=== PATIENT | female | born 1960 | race Caucasian/White ===

== ENCOUNTER 2020-06-21 08:08 | Outpatient (REF) | payer MEDICARE, SELFPAY ==
[2020-06-21 12:02] LABS: Alanine Aminotransferase 41 U/L (0-31); Albumin Level 4.5 g/dL (3.5-5.0); Alkaline Phosphatase 66 U/L (39-117); Anion Gap 13 (12-20); Aspartate Amino Transferase 33 U/L (5-31); Bilirubin Direct 0.2 mg/dL (0.0-0.5); Bilirubin Total 0.5 mg/dL (0.0-1.0); Blood Urea Nitrogen 18 mg/dL (9-16); Calcium 9.2 mg/dL (8.4-10.2); Carbon Dioxide 27 mmol/L (22-29); Chloride 106 mmol/L (96-108); Cholesterol 153 mg/dL; Estimated Glomerular Filt Rate > 60; Glucose Fasting 87 mg/dL (60-99); HDL Cholesterol 51 mg/dL; Potassium 4.1 mmol/l (3.3-5.1); Sodium 142 mmol/L (135-145); Total Protein 6.9 g/dL (6.5-8.0)
[2020-06-21 12:08] LABS: LDL Cholesterol Calculated 60 mg/dl; Triglycerides 214 mg/dL
== END 2020-06-21 08:09 | disposition home or self-care (01) ==
LOC: HO.WFDLDS 08:08
PROVIDERS: PCP Nurse Practitioner Family; Visit Provider Internal Medicine Cardiovascular Disease
DX: Z13.220 Encounter for screening for lipoid disorders (principal); Z13.89 Encounter for screening for other disorder
CPT/HCPCS: 80048; 80061; 80076

== ENCOUNTER → 2020-08-01 09:00 | Outpatient (BNVA) | payer MEDICARE, SELFPAY | PROVIDERS: PCP Nurse Practitioner Family; Visit Provider Urology | DX: N30.10 Interstitial cystitis (chronic) without hematuria (principal); R39.15 Urgency of urination | CPT/HCPCS: Q3014 ==

== ENCOUNTER 2020-08-16 07:16 | Outpatient (REF) | payer MEDICARE, SELFPAY ==
[2020-08-16 10:52] LABS: MANUAL DIFF FLAG NO
[2020-08-16 10:59] LABS: Basophils Percent Auto 0.8 % (0-2); Eosinophils Absolute Auto 0.2 X10*3/uL (0.0-0.4); Hematocrit 40.2 % (37-47); Hemoglobin 13.3 g/dl (12.0-16.0); Imm Gran Abs Auto 0.01 X10*3/uL (0.00-0.03); Imm Gran Pct Auto 0.2 % (0.0-0.4); Lymphocytes Absolute Auto 2.1 X10*3/uL (1.2-4.9); Lymphocytes Percent Auto 39.1 % (20-40); Mean Corpuscular HGB Conc 33.1 g/dl (31.0-35.0); Mean Corpuscular Volume 87.8 fL (80-98); Mean Platelet Volume 10.9 fL (9.4-12.3); Monocytes Absolute Auto 0.4 X10*3/uL (0.1-1.2); Monocytes Percent Auto 6.8 % (2-11); Neutrophils Absolute Auto 2.7 X10*3/uL (2.0-8.3); Neutrophils Percent Auto 50.1 % (45-73); Platelet Count 264 X10*3/uL (160-400); Red Blood Count 4.58 X10*6/uL (4.20-5.50); Red Cell Distribution Width 12.8 % (11.0-16.0); White Blood Count 5.3 X10*3/uL (4.8-10.8)
[2020-08-16 11:40] LABS: Alanine Aminotransferase 21 U/L (0-31); Albumin Level 4.3 g/dL (3.5-5.0); Alkaline Phosphatase 61 U/L (39-117); Anion Gap 13 (12-20); Aspartate Amino Transferase 21 U/L (5-31); Bilirubin Total 0.9 mg/dL (0.0-1.0); Blood Urea Nitrogen 15 mg/dL (9-16); Carbon Dioxide 28 mmol/L (22-29); Chloride 105 mmol/L (96-108); Cholesterol 155 mg/dL; Estimated Glomerular Filt Rate > 60; Glucose Random 85 mg/dL (60-115); HDL Cholesterol 56 mg/dL; LDL Cholesterol Calculated 63 mg/dl; Potassium 4.6 mmol/L (3.3-5.1); Sodium 141 mmol/L (135-145); Total Protein 6.5 g/dL (6.5-8.0); Triglycerides 180 mg/dL
[2020-08-16 12:08] LABS: Thyroid Stimulating Hormone 2.22 uIU/mL (0.32-4.0)
== END 2020-08-16 07:17 | disposition home or self-care (01) ==
LOC: HO.WFDLDS 07:16
PROVIDERS: PCP Nurse Practitioner Family; Visit Provider Nurse Practitioner Family
DX: E78.00 Pure hypercholesterolemia, unspecified (principal); E03.9 Hypothyroidism, unspecified
CPT/HCPCS: 36415; 80053; 80061; 84443; 85025

== ENCOUNTER → 2020-08-22 13:50 | Outpatient (BNVA) | payer MEDICARE, SELFPAY | PROVIDERS: PCP Nurse Practitioner Family; Visit Provider Urology | DX: N30.10 Interstitial cystitis (chronic) without hematuria (principal) | CPT/HCPCS: 51700 ==

== ENCOUNTER → 2020-08-23 13:54 | Outpatient (BNVA) | payer MEDICARE, SELFPAY | PROVIDERS: PCP Nurse Practitioner Family; Visit Provider Urology | DX: N30.10 Interstitial cystitis (chronic) without hematuria (principal) | CPT/HCPCS: 51700 ==

== ENCOUNTER → 2020-08-24 09:24 | Outpatient (BNVA) | payer MEDICARE, SELFPAY | PROVIDERS: Visit Provider Urology | DX: N30.10 Interstitial cystitis (chronic) without hematuria (principal) | CPT/HCPCS: 51700 ==

== ENCOUNTER → 2020-08-25 08:54 | Outpatient (BNVA) | payer MEDICARE, SELFPAY | PROVIDERS: Visit Provider Urology | DX: N30.10 Interstitial cystitis (chronic) without hematuria (principal) | CPT/HCPCS: 51700 ==

== ENCOUNTER → 2020-08-29 08:50 | Outpatient (BNVA) | payer MEDICARE, SELFPAY | PROVIDERS: Visit Provider Urology | DX: N30.10 Interstitial cystitis (chronic) without hematuria (principal) | CPT/HCPCS: 51700; 81002; 99212 ==

== ENCOUNTER → 2020-09-05 08:55 | Outpatient (BNVA) | payer MEDICARE, SELFPAY | PROVIDERS: Visit Provider Urology | DX: N30.10 Interstitial cystitis (chronic) without hematuria (principal) | CPT/HCPCS: 51700 ==

== ENCOUNTER 2023-04-02 07:03 | Outpatient (REF) | payer MEDICARE, SELFPAY ==
[2023-04-02 11:32] LABS: Hematocrit 38.3 % (37.0-47.0); Hemoglobin 12.6 g/dl (12.0-16.0); Mean Corpuscular HGB Conc 32.9 g/dl (31.0-35.0); Mean Corpuscular Hemoglobin 29.5 pg (27.0-33.0); Mean Corpuscular Volume 89.7 fL (80.0-98.0); Mean Platelet Volume 10.5 fL (9.4-12.3); Platelet Count 240 X10*3/uL (160-400); Red Blood Count 4.27 X10*6/uL (4.20-5.50); Red Cell Distribution Width 13.2 % (11.0-16.0); White Blood Count 4.8 X10*3/uL (4.8-10.8)
[2023-04-02 11:53] LABS: Alanine Aminotransferase 18 U/L (0-31); Albumin Level 3.9 g/dL (3.5-5.0); Alkaline Phosphatase 46 U/L (39-117); Anion Gap 9 (12-20); Aspartate Amino Transferase 20 U/L (5-31); Bilirubin Total 0.7 mg/dL (0.0-1.0); Blood Urea Nitrogen 15 mg/dL (9-16); Calcium 8.5 mg/dL (8.4-10.2); Carbon Dioxide 27 mmol/L (22-29); Chloride 110 mmol/L (96-108); Estimated Glomerular Filt Rate > 60; Glucose Fasting 90 mg/dL (60-99); Potassium 4.4 mmol/L (3.3-5.1); Sodium 142 mmol/L (135-145); Total Protein 5.8 g/dL (6.5-8.0)
== END 2023-04-02 07:04 | disposition home or self-care (01) ==
LOC: HO.WFDLDS 07:03
PROVIDERS: Visit Provider Nurse Practitioner Family
DX: I25.10 Atherosclerotic heart disease of native coronary artery without angina pectoris (principal); E03.9 Hypothyroidism, unspecified; E78.00 Pure hypercholesterolemia, unspecified
CPT/HCPCS: 36415; 80053; 85027

== ENCOUNTER 2023-10-21 08:32 | Outpatient (AMB) | payer MEDICARE, SELFPAY ==
--- NOTE | 2023-10-21 08:40 | MHC.OFFVIS ---
Intake Visit Reasons: Interstitial Cystitis Intake Note: New Patient is Present for IC. Patient was last seen in 2020 patient had moved to [place] U[facility] Medication: Oxybutynin Antibiotic Allergies: Ceftin Blood Thinners: Aspirin, PVR: 0 Patient states she recently had a UTI 2 weeks ago was treated with Cipro Currently patient has no symptoms Allergies cefuroxime [Ceftin] Allergy (Unknown, Verified 10/21/23 08:43) Unknown ceftin Allergy (Unknown, Uncoded 10/21/23 08:43) rash From Ceftin Allergy (Unknown, Uncoded 10/21/23 08:43) RASH, SOB Medication List - Last Reconciled 10/21/23 by Shree Galeas MD alirocumab 75 mg subcut Q2W amitriptyline 20 mg (2 x 10 mg) PO BEDTIME 30 days aspirin (Adult Low Dose Aspirin) 81 mg PO DAILY bupivacaine HCl 50 mg (10 mL) intravesical .Weekly PRN 30 days clopidogrel (Plavix) 75 mg PO DAILY diltiazem HCl CD (Cardizem CD) 180 mg PO DAILY gabapentin 300 mg PO BEDTIME 30 days levofloxacin 500 mg PO DAILY 5 days levothyroxine 50 mcg PO DAILY lidocaine HCl 10 mL intravesical .Weekly 4 weeks lidocaine HCl 2% 1 appl intra-urethral .Weekly PRN 30 days oxybutynin chloride ER 10 mg PO DAILY 30 days rosuvastatin (Crestor) 20 mg PO DAILY HPI Comments Details: Bobbi GARCIA is a very pleasant female. They are a patient of Dr Shahid. They are seen in the office today for the following urologic conditions. - interstitial cystitis - current UTI Has not been seen for 3 years Has moved back from [place] Had UTI number of months ago Has had intermittent symptoms every 4-6 weeks Positive UA today All trial Levaquin, has allergy to ciprofloxacin Prior Good response to rescue therapies Medications included oxybutynin, add amitriptyline, gabapentin, Naprosyn UA today 1+ nitrite, spec grav 1.015 Urinary Tract Infection: - flare IC Interstitial cystitis flare resolving Discussed trial of overactive bladder medication. Has been off oxybutynin. Will retry She will provide sample if recurrence. 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 Symptoms have included dyuria No urgency Yes frequency Yes PFSH Medical History Heart disease Sensation of pressure in bladder area Interstitial cystitis Urinary urgency Coronary artery disease Surgical History History of angioplasty History of hysterectomy Family History Father Lung cancer Mother Cerebral hemorrhage Sister Myocardial infarction Review of Systems Const Denies chills and Denies fever(s) Card Reports no additional complaints and Denies syncope Resp Denies cough GI Denies abdominal pain and Denies heartburn Reports as per HPI and Denies change in libido Neuro Denies syncope Psych Denies change in libido Endo Denies change in libido Physical Exam Const General: cooperative, healthy appearing, comfortable and no acute distress Orientation/consciousness: patient oriented x3 HEENT Face and sinus: Yes normal facial exam Mouth: moist mucous membranes Neck Neck: Yes normal visual inspection, Yes full ROM and Yes trachea midline Chest Chest palpation & inspection: normal inspection of the chest Resp Effort & Inspection: normal respiratory effort, able to speak in complete sentences and no respiratory distress GI Inspection: Yes normal to inspection Back/Spine/Pelvis Cervical Spine: normal cervical lordosis Thoracic/Lumbar Spine: thoracic and lumbar spine normal to inspection Skin General skin exam: no rashes or lesions noted Neuro General: patient oriented x3, gait normal, tone normal and moves all extremities Extrem General: Yes normal to inspection and Yes capillary refill normal Office Procedures Post Void Residual Post Residual Void Post Void Residual (PVR): 0 68147-Ajff Void Residual by ultrasound Results AMB Urinalysis, Automated UA Leukoctes 0 Viviana/uL Last Edit by ROBERTO Cole on 10/21/23 08:52 UA Nitrite Positive Last Edit by ROBERTO Cole on 10/21/23 08:52 UA Urobilinogen 0.2 mg/dL Last Edit by ROBERTO Cole on 10/21/23 08:52 UA Protein 0 mg/dL Last Edit by ROBERTO Cole on 10/21/23 08:52 UA pH 5.5 Last Edit by ROBERTO Cole on 10/21/23 08:52 UA Blood 0 James/uL Last Edit by ROBERTO Cole on 10/21/23 08:52 UA Specific [place] 1.015 Last Edit by JANIE ColeA on 10/21/23 08:52 UA Ketone Negative Last Edit by JANIE ColeA on 10/21/23 08:52 UA Bilirubin 0 mg/dL Last Edit by JANIE ColeA on 10/21/23 08:52 UA Glucose 0 mg/dL Last Edit by ROBERTO Cole on 10/21/23 08:52 Results Reviewed Results Reviewed: Laboratory Last Values Urine pH (Auto) 5.5 10/21/23 08:45 Specific [place] (Auto) 1.015 10/21/23 08:45 Urine Protein (Auto) 0 mg/dL 10/21/23 08:45 Glucose (UA)(Auto) 0 mg/dL 10/21/23 08:45 Urine Ketones (Auto) Negative 10/21/23 08:45 Urine Blood (Auto) 0 James/uL 10/21/23 08:45 Urine Nitrite (Auto) Positive 10/21/23 08:45 Urine Bilirubin (Auto) 0 mg/dL 10/21/23 08:45 Urine Urobilinogen (Auto) 0.2 mg/dL 10/21/23 08:45 Leukocyte Esterase (Auto) 0 Viviana/uL 10/21/23 08:45 Assessment & Plan Assessment & Plan (1) Chronic UTI (urinary tract infection): Code(s): N39.0 - Urinary tract infection, site not specified Category: Medical (2) Interstitial cystitis: Code(s): N30.10 - Interstitial cystitis (chronic) without hematuria Category: Medical Plan Trial Levaquin Orders: Orders AMB Urinalysis Automated Today Z13.9 - Encounter for screening, unspecified AMB Post Void Residual by ultrasound Today R39.15 - Urgency of urination Urine Culture Today N39.0 - Urinary tract infection, site not specified Medications: New levofloxacin 500 mg PO DAILY 5 days 5 tabs 0RF N39.0 - Urinary tract infection, site not specified Patient Instructions: Imaging studies, laboratory and physical exam results were discussed and reviewed in detail. No major barriers to patient understanding were identified. An opportunity to ask questions regarding the treatment plan was provided. All questions were answered. The patient expressed understanding and agreement with the above treatment plan. The patient is aware they should contact our office by phone for worsening of their current condition or the appearance of new urologic symptoms. Compliance is encouraged with any medications and followup testing that is ordered. It is a privilege to participate in the urologic care of your patient. If you have any questions or concerns regarding treatment for the above conditions, or other urologic issues, please do not hesitate to contact me. The office telephone contact is [phone]. This note is constructed using voice recognition software. While every effort has been made to ensure accuracy project manager industrial errors may have been included. Yours sincerely, Dr Shree Galeas MD, [facility] - Urology Providers of Expert, Compassionate Care for the Genitourinary System
== END 2023-10-21 09:09 | disposition home or self-care (01) ==
PROVIDERS: Visit Provider Urology
DX: N39.0 Urinary tract infection, site not specified (principal); N30.10 Interstitial cystitis (chronic) without hematuria; Z13.9 Encounter for screening, unspecified
CPT/HCPCS: 99204

== ENCOUNTER 2023-10-21 08:32 | Outpatient (REF) | payer MEDICARE, SELFPAY | END 2023-10-21 08:33 | disposition home or self-care (01) | LOC: HO.LAB 08:32 | PROVIDERS: Visit Provider Urology | DX: N30.10 Interstitial cystitis (chronic) without hematuria (principal); Z13.9 Encounter for screening, unspecified | CPT/HCPCS: 51798; 81003; 87086; 99202 ==

== ENCOUNTER 2023-11-18 08:38 | Outpatient (AMB) | payer MEDICARE, SELFPAY ==
--- NOTE | 2023-11-18 08:39 | A.OFFVIS_ITS ---
Intake Visit Reasons: 1m follow up Intake Note: Patient is Present for Telephone Follow Up Urology Med: Oxybutynin, Gabapentin Antibiotic Allergy:Ceftin Blood Thinner: Aspirin Patient just finished Levofloxacin Allergies cefuroxime [Ceftin] Allergy (Unknown, Verified 11/18/23 08:41) Unknown ceftin Allergy (Unknown, Uncoded 11/18/23 08:41) rash From Ceftin Allergy (Unknown, Uncoded 11/18/23 08:41) RASH, SOB Medication List - Last Reconciled 11/18/23 by Shree Galeas MD alirocumab 75 mg subcut Q2W amitriptyline 20 mg (2 x 10 mg) PO BEDTIME 30 days aspirin (Adult Low Dose Aspirin) 81 mg PO DAILY bupivacaine HCl 50 mg (10 mL) intravesical .Weekly PRN 30 days diltiazem HCl CD (Cardizem CD) 180 mg PO DAILY estradiol 0.01%(0.1mg/gram) pea-sized to urethra 3 times a week 30 days gabapentin 300 mg PO BEDTIME 30 days levothyroxine 50 mcg PO DAILY lidocaine HCl 10 mL intravesical .Weekly 4 weeks lidocaine HCl 2% 1 appl intra-urethral .Weekly PRN 30 days oxybutynin chloride ER 10 mg PO DAILY 30 days rosuvastatin (Crestor) 20 mg PO DAILY HPI Comments Details: Bobbi GARCIA is a very pleasant female. They are a patient of Dr Shahid. They are seen in the office today for the following urologic conditions. - interstitial cystitis - current UTI Telemedicine Evaluation 15 min Consultation D[employer] [place]is [place] Video Trial 3 times per week esterase f/u 6m nurse practioner Interstitial cystitis Prior Good response to rescue therapies Medications included oxybutynin, add amitriptyline, gabapentin, Naprosyn Urinary Tract Infection: - flare IC Interstitial cystitis flare resolving Discussed trial of overactive bladder medication. Has been off oxybutynin. Will retry She will provide sample if recurrence. 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 - Micro 10/21 mixed jillian Symptoms have included dyuria No urgency Yes frequency Yes PFSH Medical History Heart disease Sensation of pressure in bladder area Interstitial cystitis Urinary urgency Coronary artery disease Surgical History History of angioplasty History of hysterectomy Family History Father Lung cancer Mother Cerebral hemorrhage Sister Myocardial infarction Review of Systems Const All systems reviewed & are unremarkable except as noted in HPI and below Reports no additional complaints Resp Reports no additional complaints GI Reports no additional complaints Reports as per HPI Musc Reports no additional complaints Physical Exam Telemedicine evaluation Appropriate responses Regular breathing rate and rhythm HEENT Head: Yes normal to inspection Ears: hearing grossly normal bilaterally Eyes General: appearance normal, both eyes and all related structures Neck Neck: Yes normal visual inspection Chest Chest palpation & inspection: normal inspection of the chest Resp Effort & Inspection: normal respiratory effort and able to speak in complete sentences Telehealth Telehealth Telehealth Platform: [employer] Location of provider rendering services: practice address Location of patient: address on file Patient Identification confirmed using: Name, : Yes Telehealth method: video Patient verbally consented to treatment: Yes Patient verbally consented to billing insurance company: Yes Patient informed of any privacy concerns related to visit: Yes Minutes spent on Phone/Video with Pt.: 15 Assessment & Plan Assessment & Plan (1) Interstitial cystitis: Code(s): N30.10 - Interstitial cystitis (chronic) without hematuria Category: Medical (2) Chronic UTI (urinary tract infection): Code(s): N39.0 - Urinary tract infection, site not specified Category: Medical Plan Six-month follow-up office Medications: New estradiol 0.01%(0.1mg/gram) pea-sized to urethra 3 times a week 30 days 42.5 grams 2RF N39.0 - Urinary tract infection, site not specified Patient Instructions: Imaging studies, laboratory and physical exam results were discussed and reviewed in detail. No major barriers to patient understanding were identified. An opportunity to ask questions regarding the treatment plan was provided. All questions were answered. The patient expressed understanding and agreement with the above treatment plan. The patient is aware they should contact our office by phone for worsening of their current condition or the appearance of new urologic symptoms. Compliance is encouraged with any medications and followup testing that is ordered. It is a privilege to participate in the urologic care of your patient. If you have any questions or concerns regarding treatment for the above conditions, or other urologic issues, please do not hesitate to contact me. The office telephone contact is [phone]. This note is constructed using voice recognition software. While every effort has been made to ensure accuracy guest relations agent errors may have been included. Yours sincerely, Dr Shree Galeas MD, [facility] - Urology Providers of Expert, Compassionate Care for the Genitourinary System Coding Level of Care Code Tele Est Pt Level 4 (68993) Diagnoses Interstitial cystitis N30.10 Chronic UTI (urinary tract infection) N39.0
== END 2023-11-18 09:11 | disposition home or self-care (01) ==
LOC: HO.HUSH 08:38
PROVIDERS: Visit Provider Urology
DX: N39.0 Urinary tract infection, site not specified (principal)
CPT/HCPCS: 99213

== ENCOUNTER → 2023-11-18 08:38 | Outpatient (BNVA) | payer MEDICARE, SELFPAY | PROVIDERS: Visit Provider Urology ==

== ENCOUNTER 2024-06-09 09:46 | Outpatient (AMB) | payer MEDICARE, SELFPAY ==
--- NOTE | 2024-06-09 10:04 | A.OFFVIS_ITS ---
Intake Visit Reasons: 6 month f/u Intake Note: Patient is present for IC/UTI Follow up Urology Med: Estradiol Antibiotic Allergy: None Blood Thinner: Aspirin Last PVR:0ML Todays PVR: 0ml Patient states that she has been very symptomatic reports pain with urination, She also reports burning, Pressure and Frequency. She was recently treated with Ceftin 500mg for 5 days states that it did not help at all. Berry Picker Machine Operator Required: No Accompanied by: Self / Same As Patient Allergies cefuroxime [Ceftin] Allergy (Unknown, Verified 06/09/24 10:10) Unknown ceftin Allergy (Unknown, Uncoded 06/09/24 10:10) rash From Ceftin Allergy (Unknown, Uncoded 06/09/24 10:10) RASH, SOB HPI Comments Details: Bobbi GARCIA is a very pleasant female. They are a patient of Dr Shahid. They are seen in the office today for the following urologic conditions. - interstitial cystitis - recurrent UTI IC flare following UTI UA negative today Rescue solution today - she will call if effective and then have 5 treatments sequentially followed by 1 treatment weekly for 5 weeks We prescribed amitriptyline, gabapentin, Naprosyn which she has responded to well previously Interstitial cystitis Prior Good response to rescue therapies Medications included oxybutynin, Response to combination therapy with flare Urinary Tract Infection: - flare IC Interstitial cystitis flare resolving Discussed trial of overactive bladder medication. Has been off oxybutynin. Will retry She will provide sample if recurrence. 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 - Micro 10/21 mixed jillian Symptoms have included dyuria No urgency Yes frequency Yes PFSH Medical History Heart disease Sensation of pressure in bladder area Interstitial cystitis Urinary urgency Coronary artery disease Surgical History History of angioplasty History of hysterectomy Family History Father Lung cancer Mother Cerebral hemorrhage Sister Myocardial infarction Review of Systems Const Denies chills and Denies fever(s) Card Reports no additional complaints and Denies syncope Resp Denies cough GI Denies abdominal pain and Denies heartburn Reports as per HPI and Denies change in libido Neuro Denies syncope Psych Denies change in libido Endo Denies change in libido Physical Exam Const General: cooperative, healthy appearing, comfortable and no acute distress Orientation/consciousness: patient oriented x3 HEENT Face and sinus: Yes normal facial exam Mouth: moist mucous membranes Neck Neck: Yes normal visual inspection, Yes full ROM and Yes trachea midline Chest Chest palpation & inspection: normal inspection of the chest Resp Effort & Inspection: normal respiratory effort, able to speak in complete sentences and no respiratory distress GI Inspection: Yes normal to inspection Back/Spine/Pelvis Cervical Spine: normal cervical lordosis Thoracic/Lumbar Spine: thoracic and lumbar spine normal to inspection Skin General skin exam: no rashes or lesions noted Neuro General: patient oriented x3, gait normal, tone normal and moves all extremities Extrem General: Yes normal to inspection and Yes capillary refill normal Office Procedures Bladder/Catheter Procedure Details: Patient given IC instillation cocktail through 14fr straight catheter. Patient tolerated instillation well. Patient will call office later in day if helpful. 14fr straight catheter used to instill: 10mls Bupivicaine 0.50% 2mls Heparin (10,000 units) 10mls Lidocaine 2% 1 Lidocaine urojet 1ml Solumedrol 16860-Jcbnytuqyk of Bladder 22560-Btdccu Bladder Catheter Procedure code (CPT) selection complete Post Void Residual Post Residual Void Post Void Residual (PVR): 0 35049-Bzyw Void Residual by ultrasound Results AMB Urinalysis, Automated UA Leukoctes 15 Viviana/uL Last Edit by ROBERTO Cole on 06/09/24 10:25 UA Nitrite Negative Last Edit by ROBERTO Cole on 06/09/24 10:25 UA Urobilinogen 0.2 mg/dL Last Edit by ROBERTO Cole on 06/09/24 10:2 5 UA Protein 0 mg/dL Last Edit by ROBERTO Cole on 06/09/24 10:25 UA pH 6.0 Last Edit by ROBERTO Cole on 06/09/24 10:25 UA Blood 0 James/uL Last Edit by ROBERTO Cole on 06/09/24 10:25 UA Specific [place] 1.020 Last Edit by ROBERTO Cole on 06/09/24 10: 25 UA Ketone Negative Last Edit by Génesis Moulton, RMA on 06/09/24 10:25 UA Bilirubin 0 mg/dL Last Edit by Génesis Moulton, RMA on 06/09/24 10:25 UA Glucose 0 mg/dL Last Edit by Génesis Moulton, RMA on 06/09/24 10:25 Results Reviewed Results Reviewed: Laboratory Last Values Urine pH (Auto) 6.0 06/09/24 10:10 Specific [place] (Auto) 1.020 06/09/24 10:10 Urine Protein (Auto) 0 mg/dL 06/09/24 10:10 Glucose (UA)(Auto) 0 mg/dL 06/09/24 10:10 Urine Ketones (Auto) Negative 06/09/24 10:10 Urine Blood (Auto) 0 James/uL 06/09/24 10:10 Urine Nitrite (Auto) Negative 06/09/24 10:10 Urine Bilirubin (Auto) 0 mg/dL 06/09/24 10:10 Urine Urobilinogen (Auto) 0.2 mg/dL 06/09/24 10:10 Leukocyte Esterase (Auto) 15 Viviana/uL 06/09/24 10:10 Assessment & Plan Assessment & Plan (1) Interstitial cystitis: Code(s): N30.10 - Interstitial cystitis (chronic) without hematuria Category: Medical (2) Urinary urgency: Code(s): R39.15 - Urgency of urination Category: Medical Plan Rescue solutions Orders: Orders AMB Urinalysis Automated Today Z13.9 - Encounter for screening, unspecified AMB Post Void Residual by ultrasound Today N39.0 - Urinary tract infection, site not specified AMB Bladder/Catheter Procedure Today N30.10 - Interstitial cystitis (chronic) without hematuria, R39.15 - Urgency of urination Medications: New naproxen (Naprosyn) 500 mg PO BEDTIME 30 tabs 0RF pain 30 days N20.0 - Calculus of kidney, N30.10 - Interstitial cystitis (chronic) without hematuria Patient Instructions: Imaging studies, laboratory and physical exam results were discussed and reviewed in detail. No major barriers to patient understanding were identified. An opportunity to ask questions regarding the treatment plan was provided. All questions were answered. The patient expressed understanding and agreement with the above treatment plan. The patient is aware they should contact our office by phone for worsening of their current condition or the appearance of new urologic symptoms. Compliance is encouraged with any medications and followup testing that is ordered. It is a privilege to participate in the urologic care of your patient. If you have any questions or concerns regarding treatment for the above conditions, or other urologic issues, please do not hesitate to contact me. The office telephone contact is [phone]. This note is constructed using voice recognition software. While every effort has been made to ensure accuracy toxicologist errors may have been included. Yours sincerely, Dr Shree Galeas MD, [facility] - Urology Providers of Expert, Compassionate Care for the Genitourinary System Coding Level of Care Code Est Pt Level 4 (68673) Diagnoses Interstitial cystitis N30.10 Urinary urgency R39.15 CPT Codes Bladder/Catheter Procedure - CPT: 84408-Aeohpllzvj of Bladder ([id number]) Bladder/Catheter Procedure - CPT: 71781-Iduyuw Bladder Catheter ([id number]) Post Residual Void - PVR CPT Code: 06778-Mptm Void Residual by ultrasound ([id number])
== END 2024-06-09 10:44 | disposition home or self-care (01) ==
PROVIDERS: Visit Provider Urology
DX: N30.10 Interstitial cystitis (chronic) without hematuria (principal); R39.15 Urgency of urination; Z13.9 Encounter for screening, unspecified
CPT/HCPCS: 51700; 99214

== ENCOUNTER → 2024-06-09 09:46 | Outpatient (BNVA) | payer MEDICARE, SELFPAY | PROVIDERS: Visit Provider Urology | DX: N30.10 Interstitial cystitis (chronic) without hematuria (principal); R39.15 Urgency of urination | CPT/HCPCS: 51700; 51798; 81003; 99212 ==

== ENCOUNTER → 2024-06-10 08:18 | Outpatient (BNVA) | payer MEDICARE, SELFPAY | PROVIDERS: Visit Provider Urology | DX: N30.10 Interstitial cystitis (chronic) without hematuria (principal) | CPT/HCPCS: 51700; 51701 ==

== ENCOUNTER → 2024-06-11 08:21 | Outpatient (BNVA) | payer MEDICARE, SELFPAY | PROVIDERS: Visit Provider Urology | DX: N30.10 Interstitial cystitis (chronic) without hematuria (principal); R39.15 Urgency of urination | CPT/HCPCS: 51700; 51701 ==

== ENCOUNTER → 2024-06-14 08:21 | Outpatient (BNVA) | payer MEDICARE, SELFPAY | PROVIDERS: Visit Provider Urology | DX: N30.10 Interstitial cystitis (chronic) without hematuria (principal); R39.15 Urgency of urination | CPT/HCPCS: 51700; 51701 ==

== ENCOUNTER → 2024-06-15 09:54 | Outpatient (BNVA) | payer MEDICARE, SELFPAY | PROVIDERS: Visit Provider Urology | DX: N30.10 Interstitial cystitis (chronic) without hematuria (principal) | CPT/HCPCS: 51700; 51701 ==

== ENCOUNTER → 2024-06-25 08:24 | Outpatient (BNVA) | payer MEDICARE, SELFPAY | PROVIDERS: Visit Provider Urology | DX: N30.10 Interstitial cystitis (chronic) without hematuria (principal); Z46.6 Encounter for fitting and adjustment of urinary device | CPT/HCPCS: 51700; 51701 ==

== ENCOUNTER → 2024-07-02 07:56 | Outpatient (BNVA) | payer MEDICARE, SELFPAY | PROVIDERS: Visit Provider Urology | DX: N30.10 Interstitial cystitis (chronic) without hematuria (principal); R39.15 Urgency of urination | CPT/HCPCS: 51700; 51701 ==

== ENCOUNTER → 2024-07-09 08:00 | Outpatient (BNVA) | payer MEDICARE, SELFPAY | PROVIDERS: Visit Provider Urology | DX: N30.10 Interstitial cystitis (chronic) without hematuria (principal) | CPT/HCPCS: 51700; 51701 ==

== ENCOUNTER → 2024-07-15 07:55 | Outpatient (BNVA) | payer MEDICARE, SELFPAY | PROVIDERS: Visit Provider Urology | DX: N30.10 Interstitial cystitis (chronic) without hematuria (principal); R39.15 Urgency of urination | CPT/HCPCS: 51700; 51702 ==

== ENCOUNTER → 2024-07-23 07:54 | Outpatient (BNVA) | payer MEDICARE, SELFPAY | PROVIDERS: Visit Provider Urology | DX: N30.10 Interstitial cystitis (chronic) without hematuria (principal); R39.15 Urgency of urination | CPT/HCPCS: 51700; 51701 ==

== ENCOUNTER → 2024-08-04 08:23 | Outpatient (BNVA) | payer MEDICARE, SELFPAY | PROVIDERS: Visit Provider Urology | DX: R39.15 Urgency of urination (principal); N30.10 Interstitial cystitis (chronic) without hematuria | CPT/HCPCS: 81003; 99212 ==

== ENCOUNTER 2025-02-03 08:28 | Outpatient (AMB) | payer MEDICARE, SELFPAY ==
--- NOTE | 2025-02-03 08:40 | MHC.OFFVIS ---
Intake Visit Reasons: 6m follow up Intake Note: Patient is present for 6mo follow up C/O DYSURIA, FLANK PAIN, URINE ODOR Urology Medication:ESTRADIOL, AMITRIPTYLINE, OXYBUTIN, TOLTERODINE Antibiotic Allergy:CEFTIN Blood Thinner:ASPIRIN PVR 73MLS Market Maker Required: No Accompanied by: Self / Same As Patient Allergies cefuroxime (Ceftin) Allergy (Unknown, Verified 02/03/25 08:53) Unknown ceftin Allergy (Unknown, Uncoded 08/04/24 08:32) rash From Ceftin Allergy (Unknown, Uncoded 08/04/24 08:32) RASH, SOB HPI Comments Details: Bobbi GARCIA is a very pleasant female. They are a patient of Dr Shahid. They are seen in the office today for the following urologic conditions. - interstitial cystitis - recurrent UTI Six-month follow-up UA positive today Culture to be performed IC flare following UTI in May 2024 UA today positive leuks and positive nitrites Had previously been prescribed triple IC therapy Prior good response to rescue solutions Has been on triple IC therapy Interstitial cystitis Prior Good response to rescue therapies Medications included oxybutynin, Response to combination therapy with flare Baseline on biologic Urinary Tract Infection: - flare IC Interstitial cystitis flare resolving Discussed trial of overactive bladder medication. Has been off oxybutynin. Will retry She will provide sample if recurrence. 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 - Micro 10/21 mixed jillian Symptoms have included dyuria No urgency Yes frequency Yes PFSH Medical History Heart disease Sensation of pressure in bladder area Interstitial cystitis Urinary urgency Coronary artery disease Surgical History History of angioplasty History of hysterectomy Family History Father Lung cancer Mother Cerebral hemorrhage Sister Myocardial infarction Review of Systems Const Denies chills and Denies fever(s) Card Reports no additional complaints and Denies syncope Resp Denies cough GI Denies abdominal pain and Denies heartburn Reports as per HPI and Denies change in libido Neuro Denies syncope Psych Denies change in libido Endo Denies change in libido Physical Exam Const General: cooperative, healthy appearing, comfortable and no acute distress Orientation/consciousness: patient oriented x3 HEENT Face and sinus: Yes normal facial exam Mouth: moist mucous membranes Neck Neck: Yes normal visual inspection, Yes full ROM and Yes trachea midline Chest Chest palpation & inspection: normal inspection of the chest Resp Effort & Inspection: normal respiratory effort, able to speak in complete sentences and no respiratory distress GI Inspection: Yes normal to inspection Back/Spine/Pelvis Cervical Spine: normal cervical lordosis Thoracic/Lumbar Spine: thoracic and lumbar spine normal to inspection Skin General skin exam: no rashes or lesions noted Neuro General: patient oriented x3, gait normal, tone normal and moves all extremities Extrem General: Yes normal to inspection and Yes capillary refill normal Assessment & Plan Assessment & Plan (1) Interstitial cystitis: Code(s): N30.10 - Interstitial cystitis (chronic) without hematuria Category: Medical (2) Chronic UTI (urinary tract infection): Code(s): N39.0 - Urinary tract infection, site not specified Category: Medical Plan Six-month follow-up UA office Medications: New sulfamethoxazole-trimethoprim 800-160 mg (Bactrim DS) 1 tab PO BID 10 tabs 0RF 5 days N39.0 - Urinary tract infection, site not specified Patient Instructions: This note is constructed using voice recognition software. While every effort has been made to ensure accuracy street openings inspector errors may have been included. Imaging studies, laboratory and physical exam results were discussed and reviewed in detail. No major barriers to patient understanding were identified. An opportunity to ask questions regarding the treatment plan was provided. All questions were answered. The patient expressed understanding and agreement with the above treatment plan. The patient is aware they should contact our office by phone for worsening of their current condition or the appearance of new urologic symptoms. Compliance is encouraged with any medications and followup testing that is ordered. It is a privilege to participate in the urologic care of your patient. If you have any questions or concerns regarding treatment for the above conditions, or other urologic issues, please do not hesitate to contact me. The office telephone contact is [phone]. Sincerely, Dr Shree Galeas MD, [facility] - Urology Compassionate Specialist Care for the Genitourinary System Coding Level of Care Code Est Pt Level 4 (18652) Complex EM visit Add On G2211 Diagnoses Interstitial cystitis N30.10 Chronic UTI (urinary tract infection) N39.0
--- OUTSIDE RECORDS SUMMARY | 2025-02-03 08:41 | XMS_ITS | Patient Health Record ---
Author Organization [facility] Address [address] [place] [address] Care Team Providers Care Teacher Cclc Name Role Phone Yadira Shah Primary Care Provider Allergies Allergen (clinical drug ingredient) Drug/Non Drug Allergy documented on EMR Reaction Allergy Type Onset Date Status Ceftin rash Drug Allergy Active Reason For Referral No Information Medications Medication SIG (Take, Route, Frequency, Duration) Notes Start Date End Date Status Ondansetron 4 MG 1 tablet on the tong ue and allow to dissolve every 8 hours as needed for nausea and vomiting Orally Once a day; Duration: 7 day(s) 05/27/2022 Active Aspirin 81 MG 1 tablet Orally Once a day Active Ciprofloxacin HCl 250 MG 1 tablet Orally every 12 hrs; Duration: 4 day(s) 07/24/2022 Active Levothyroxine Sodium 50 MCG TAKE ONE TAB LET BY MOUTH EVERY MORNING ON AN EMPTY STOMACH; Duration: 90 Active Alirocumab 75 MG/ML 1 injection Subcutan eous Twice a month Active Synthroid 50 MCG 1 tablet in the morn ing on an empty stomach Orally Once a day; Duration: 90 days Active oxyBUTYnin Chloride ER 15 MG 1 tablet Orally Once a day; Duration: 90 days Active Social History Tobacco Use: Social History Observation Description Date Details (start date - stop date) Never Smoker NA - NA Tobacco Use/Smoking Question Answer Notes Are you a nonsmoker Alcohol Screen (Audit-C) Question Answer Notes Did you have a drink contain ing alcohol in the past year? Yes How often did you have a dri nk containing alcohol in the past year? Monthly or less (1 point) How many drinks did you have on a typical day when you were drinking in the past year? 1 or 2 drinks (0 point) How often did you have 6 or more drinks on one occasion in the past year? Never (0 point) Points 1 Interpretation Negative Problems Problem Type SNOMED Code ICD Code Onset Dates Problem Status W/U Status Risk Notes Problem Chronic interstitial cystitis (673107536) Interstitial cystitis (chronic) without hematuria (N30.10) Active confirmed Problem Mixed hyperlipidemia (744552416) Mixed hyperlipidemia (E78.2) Active confirmed Problem Acquired hypothyroidism (102005906) Acquired hypothyroidism (E03.9) Active confirmed Problem Atherosclerotic heart disease of [place] coronary artery without angina pectoris (360923934769129) Coronary artery disease involving [place] coronary artery of [place] heart without angina pectoris (I25.10) Active confirmed Plan Of Treatment Future Test Test Name Order Date Microalb/Creat Ratio, Randm Ur LIPID PANEL ([facility]) 01/21/2023 TSH+FREE T4 ([facility]) 01/21/2023 URINALYSIS, COMPLETE W/REFLEX TO CULTURE ([facility]) 01/21/2023 CBC W/DIFF 01/21/2023 CMP 01/21/2023 HGA1C by HPLC 01/21/2023 Insurance Providers Payer Name Payer Address Payer Phone Subscriber Number Group Number Insured Name Patient Relationship to Insured Coverage Start Date Coverage End Date MEDICARE [address] [place] [phone] [id number] Bobbi Garcia Self - patient is the insured 5 [facility] [address] [place] [address] [phone] [id number] Bobbi Garcia Self - patient is the insured 5 Medical (General) History Medical History History ICD Code hyperlipidemia hypothyroidism Surgical History Surgery Date(Month/Year) hysterectomy appendectomy stent 2011 Hospitalization History Reason Date(Month/Year) heart attack 2011 same as above
--- OUTSIDE RECORDS SUMMARY | 2025-02-03 08:41 | XMS_ITS | Patient Health Record ---
Author Organization [facility] Address [address] [address] Care Team Providers Care Personal Care Aid Name Role Phone Yadira Shah Primary Care Provider Allergies Allergen (clinical drug ingredient) Drug/Non Drug Allergy documented on EMR Reaction Allergy Type Onset Date Status Ceftin rash Drug Allergy Active Reason For Referral No Information Medications Medication SIG (Take, Route, Frequency, Duration) Notes Start Date End Date Status oxyBUTYnin Chloride ER 15 MG 1 tablet Orally Once a day; Duration: 90 days Active Ciprofloxacin HCl 250 MG 1 tablet Orally every 12 hrs; Duration: 4 day(s) 07/24/2022 Active Aspirin 81 MG 1 tablet Orally Once a day Active Alirocumab 75 MG/ML 1 injection Subcutan eous Twice a month Active Ondansetron 4 MG 1 tablet on the tong ue and allow to dissolve every 8 hours as needed for nausea and vomiting Orally Once a day; Duration: 7 day(s) 05/27/2022 Active Synthroid 50 MCG 1 tablet in the morn ing on an empty stomach Orally Once a day; Duration: 90 days Active Levothyroxine Sodium 50 MCG TAKE ONE TAB LET BY MOUTH EVERY MORNING ON AN EMPTY STOMACH; Duration: 90 Active Problems Problem Type SNOMED Code ICD Code Onset Dates Problem Status W/U Status Risk Notes Problem Chronic interstitial cystitis (528424640) Interstitial cystitis (chronic) without hematuria (N30.10) Active confirmed Problem Mixed hyperlipidemia (219391036) Mixed hyperlipidemia (E78.2) Active confirmed Problem Acquired hypothyroidism (927262296) Acquired hypothyroidism (E03.9) Active confirmed Problem Atherosclerotic heart disease of [place] coronary artery without angina pectoris (129964536028821) Coronary artery disease involving [place] coronary artery of [place] heart without angina pectoris (I25.10) Active confirmed Plan Of Treatment No Information Insurance Providers Payer Name Payer Address Payer Phone Subscriber Number Group Number Insured Name Patient Relationship to Insured Coverage Start Date Coverage End Date MEDICARE [address] [place] [phone] [id number] Bobbi Garcia Self - patient is the insured 5 Medical (General) History Medical History History ICD Code hyperlipidemia hypothyroidism Surgical History Surgery Date(Month/Year) stent 2011 appendectomy hysterectomy Hospitalization History Reason Date(Month/Year) heart attack 2011 same as above
--- OUTSIDE RECORDS SUMMARY | 2025-02-03 08:41 | XMS_ITS | Clinical Summary ---
Author Organization [facility] Address [address] [place] [address] Care Team Providers Care Police Officer Booking Name Role Phone Gaby Mckoy Gryeson CARRERA Primary Care Provider [phone] Allergies Active Allergy Reactions Criticality Noted Date Comments Cefuroxime Rash Low 12/18/2016 Medications Medication Sig Dispensed Refills Start Date End Date Status aspirin EC 81 MG tablet Take 1 tablet (81 mg total) by mouth. 0 Active levothyroxine (SYNTHROID) tablet 50 mcg TAKE 1 TABLET BY MOUTH EVERY DAY 90 tablet 1 12/16/2020 Active oxybutynin (DITROPAN-XL) 10 MG 24 hr tablet Take 1 tablet (10 mg total) by mouth daily. 90 tablet 3 04/09/2023 Active Alirocumab (Praluent) 75 MG/ML SOAJ Inject 75 mg under the skin every 14 (fourteen) days. 6 mL 3 04/07/2023 Active Active Problems Problem Noted Date Diagnosed Date Acquired hypothyroidism 01/27/2023 Coronary artery disease invo lving [place] coronary artery of [place] heart without angina pectoris 06/18/2017 Overview: Overview: 12/2011 PCI DANA dist RCA 02/2013 Cath NL 02/2018 CATH NL Last Assessment & Plan: Doing well. Dyspnea on exertion 06/18/2017 Overview: Last Assessment & Plan: No clear etiology. Hypercholesterolemia 06/18/2017 Overview: Last Assessment & Plan: Last LDL was 68. She is tolerating her new medication well and I will have labs repeated in a few months. Atypical chest pain 06/18/2017 Overview: Last Assessment & Plan: Minimal, improving and not limiting. Immunizations Name Administration Dates Next Due Influenza Quad (Fluarix/Fluz one/FluLaval) 0.5mL (SD-IIV4) 03/13/2020 Influenza Quad (Flucelvax) 0.5mL >6mon (ccIIV4) 04/07/2023 Pneumococcal Conjugate PCV13 12/22/2018,04/28/20 18 Pneumococcal Conjugate PCV20 04/07/2023 Shingrix Vaccine (Zoster Recombinant) 06/12/2020 ,03/13/2020 Family History Medical History Relation Name Comments Dementia Brother Lung cancer Father Hypertension Mother Relation Name Status Comments Brother Alive Father Mother Sister Social History Tobacco Use Types Packs/Day Years Used Date Smoking Tobacco: Never Smokeless Tobacco: Never Alcohol Use Standard Drinks/Week Comments Yes 0 (1 standard drink = 0.6 oz pur e alcohol) social Sex and Gender Information Value Date Recorded Sex Assigned at Not on file Gender Identity Not on file Sexual Orientation Not on file Job Start Date Occupation Industry Not on file Not on file Not on file Last Filed Vital Signs Vital Sign Reading Time Taken Comments Blood Pressure 118/78 04/07/2023 9:07 AM EDT Pulse 110 08/21/2020 9:17 AM EST Temperature 36.2 C (97.1 F) 04/07/2023 9:07 AM EDT Respiratory Rate 16 08/21/2020 9:17 AM EST Oxygen Saturation 98% 08/21/2020 9:17 AM EST Inhaled Oxygen Concentration - - Weight 71.2 kg (157 lb) 04/07/2023 9:07 AM EDT Height 165.1 cm (5' 5 ) 04/07/2023 9:07 AM EDT Body Mass Index 26.13 04/07/2023 9:07 AM EDT Plan of Treatment Health Maintenance Due Date Last Done Comments Cervical Cancer Screening (Pap Smear) 10/13/2021 10/13/2018 (Not eligible (specify reason in comment)) Breast Cancer Screening (Mammogram) 05/16/2022 05/16/2020, 05/08/2018, 05/06/2018 COVID-19 Vaccine (2 - season) 2024 09/02/2020 DTap / Tdap / Td (3 - Td or Tdap) 03/18/2024 03/18/2014, 09/02/2013 BMI Counseling 04/07/2024 04/07/2023, 1002/2023, 08/21/2020, Additional history exists Depression Screening 04/07/2024 04/07/2023, 10/14/19 19 Preventative Health Evaluation 04/07/2024 04/07/2023 Influenza Vaccine (#1) 2025 , 03/13/2020, 03/13/2020 Colon Cancer Screening (Colonoscopy) 12/22/2028 12/22/2018 (Scheduled) RSV Adult > 60+ Yrs or (1 - 1-dose 75+ series) 2035 Hepatitis C Screening Addressed 01/12/2020 Overri dden with the intention of not completing the topic Shingrix-Zoster Vaccine Completed 06/12/20, 06/12/2020, 03/13/2020, Additional history exists Pneumococcal Vaccine Completed 04/07/2023, 12/22/2018, 04/28/2018 Pneumococcal Vaccine Completed 04/07/2023, 12/22/2018, 04/28/2018 Hepatitis B Vaccines Aged Out No long er eligible based on patient's age to complete this topic RSV Ped < 20 months Aged Out No longe r eligible based on patient's age to complete this topic Care Teams Police Officer Booking Relationship Specialty Start Date End Date Gaby Mckoy APRN [address] [place] [address] PCP - General Family Medicine 04/23/18
--- OUTSIDE RECORDS SUMMARY | 2025-02-03 08:41 | XMS_ITS | Clinical Summary ---
Author Organization [facility] Address [address] [place] [address] Phone Care Team Providers Care Welding Supervisor Name Role Phone DellmilaGriffin woodruff DO Primary Care Provider Encounters Date Type Department Care Team Description 11/19/2024 7:31 AM EDT - 11/19/2024 11:59 PM EDT Hospital Encounter [facility] Ultrasound [address] [place] [phone] Breast asymmetry Discharge Disposition: Home or Self Care 11/19/2024 6:53 AM EDT - 11/19/2024 11:59 PM EDT [facility] [address] [place] [phone] Breast asymmetry Discharge Disposition: Home or Self Care from Last 3 Months Surgical History Surgery Date Site/Laterality Comments APPENDECTOMY PROCEDURE:APPENDECTOMY CARDIAC CATHETERIZATION PROCEDURE:CARDIAC CATHETERIZATION HYSTERECTOMY 06/30/1992 - 06/29/1993 PROCEDURE:HYSTERECTOMY VEIN SURGERY PROCEDURE:VEIN SURGERY CORONARY ANGIOPLASTY PROCEDURE:CORONARY ANGIOPLASTY BREAST CYST ASPIRATION STEREOTACTIC CORE BIOPSY 06/30/2003 - 06/29/2004 [facility] Medical History Medical History Date Comments Coronary artery disease DX:Coron rola artery disease Hyperlipidemia DX:Hyperlipidemi a Myocardial infarction (CMS/H CC V24, CMS/HCC V28) DX:Myocardial infarction (HC C) Acquired hypothyroidism 01/27/2023 DX:Acqui red hypothyroidism Family History Medical History Relation Name Comments Dementia Brother Lung cancer Father Hypertension Mother Relation Name Status Comments Brother Alive Father Mother Sister Social History Tobacco Use Types Packs/Day Years Used Date Smoking Tobacco: Never Smokeless Tobacco: Never Alcohol Use Standard Drinks/Week Comments Yes 0 (1 standard drink = 0.6 oz pur e alcohol) Comments No Sex and Gender Information Value Date Recorded Sex Assigned at Female 05/04/2024 2:53 PM EST Legal Sex Female 1:41 PM EST Gender Identity Female 05/04/2024 2:53 PM EST Sexual Orientation Not on file Obstetrics History Last Filed Vital Signs Vital Sign Reading Time Taken Comments Blood Pressure 118/78 04/07/2023 9:07 AM EDT Sit ting Left arm Pulse - - Temperature - - Respiratory Rate - - Oxygen Saturation - - Inhaled Oxygen Concentration - - Weight 74.8 kg (165 lb) 11/19/2024 7:08 AM EDT Height 165.1 cm (5' 5 ) 11/19/2024 7:08 AM EDT Body Mass Index 27.46 11/19/2024 7:08 AM EDT Plan of Treatment Upcoming Encounters Date Type Department Care Team (Late st Contact Info) Description 05/24/2025 7:30 AM EST [facility]ointment [facility] [address] [phone] Health Maintenance Due Date Last Done Comments DTaP,Tdap,and Td Vaccines (1 - Tdap) 1979 Cervical Cancer Screening: Pap Smear 1981 Colorectal Cancer Screening: Colonoscopy 05/28/2022 HIV Screening 05/28/2022 Hepatitis C Screening 05/28/2022 Medicare Annual Wellness Visit 05/28/2022 Social Influencers of Health Screening 05/28/2022 COVID-19 Vaccine ( season) 2024 09/02/2020 Depression Screening 06/30/2024 Influenza Vaccine (#1) 2025 , 04/07/2023, 03/13/2020, Additional history exists Hypertension/CHF/CAD Annual BMP Blood Test 09/23/2025 09/23/2024, 03/22/2024, 11/06/2023 Breast Cancer Screening 11/19/2026 11/20/19, 05/19/2024, 05/05/2024, Additional history exists Cholesterol Screening (Lipid Panel) 09/23/2029 09/23/2024, 03/22/2024 RSV Immunization Adult Patients (1 - 1-dose 75+ series) 2035 Zoster Vaccines Completed 06/12/2020, 03/13/2020 Pneumococcal Vaccine: 50+ Years Completed 04/07/2023, 12/22/2018, 04/28/2018 HIB Vaccines Aged Out No longer eligi ble based on patient's age to complete this topic HPV Vaccines Aged Out No longer eligi ble based on patient's age to complete this topic Hepatitis A Vaccines Aged Out No long er eligible based on patient's age to complete this topic Hepatitis B Vaccines Aged Out No long er eligible based on patient's age to complete this topic IPV Vaccines Aged Out No longer eligi ble based on patient's age to complete this topic MMR Vaccines Aged Out No longer eligi ble based on patient's age to complete this topic Meningococcal ACWY Vaccine Aged Out N o longer eligible based on patient's age to complete this topic Meningococcal B Vaccine Aged Out No l onger eligible based on patient's age to complete this topic RSV Immunization Patients Under 20 months Aged Out No longer eligible based on patient's age to complete this topic Varicella Vaccines Aged Out No longer eligible based on patient's age to complete this topic Procedures Procedure Name Priority Date/Time Associated Diagnosis Comments US BREAST LIMITED LEFT Routine 11/19/2024 7:52 AM EDT Breast asymmetry MG MAMMO DIGITAL DIAGNOSTIC W KHOI LEFT Routine 11/19/2024 7:49 AM EDT Breast asymmetry BASIC METABOLIC PANEL Routine 09/23/2024 7:40 AM EDT Myxedema heart disease LIPID PANEL WITH REFLEX TO DIRECT LDL Routine 09/23/2024 7:40 AM EDT Myxedema heart disease from Last 3 Months or Most Recently Relevant to Health Maintenance Results * US Breast Limited Left (11/19/2024 7:52 AM EDT) Anatomical Region Laterality Modality Breast Left Ultrasound 11/19/2024 8:01 AM EDT Impressions 11/19/2024 8:06 AM EDT Unchanged asymmetry in the left breast on mammography. Unchanged oval hypoechoic mass or area of altered echotexture in the left breast on ultrasound. The ultrasound and mammogram findings may represent the same entity. Recommend documenting stability for 24 months. This should include diagnostic mammography in 6 months. The patient will be due for right breast screening. Recommend targeted left breast ultrasound in 6 months. ASSESSMENT: BI-RADS 3: PROBABLY BENIGN RECOMMENDATION(S): 1: Follow-up diagnostic mammogram BILATERAL in 6 months. Recommend targeted left breast ultrasound in 6 months [facility] location[facility] [address], [address] -------- FINAL REPORT -------- Dictated By: Ascencion Marvin Dictated Date: 11/19/2024 08:01 ET Assigned Physician: Ascencion Marvin Reviewed and Electronically Signed By: Ascencion Marvin Signed Date: 11/19/2024 08:06 ET Workstation ID: [id number] Transcribed By: Self Edit Transcribed Date: 11/19/2024 08:01 ET Narrative 11/19/2024 8:06 AM EDT EXAM: DIAGNOSTIC MAMMOGRAPHY, UNILATERAL LEFT ULTRASOUND: DIAGNOSTIC ULTRASOUND, UNILATERAL LEFT HISTORY: Short interval follow-up. Probably benign left breast asymmetry on mammography. Probably benign oval left breast mass or altered echotexture on ultrasound COMPARISON: 05/19/24, 05/05/24, 05/12/20 TECHNIQUE: Synthesized views of the left breast in the CC and MLO projections. Tomosynthesis of the left breast in the CC and MLO projections. ADDITIONAL IMAGING: None High-frequency linear transducer ultrasound of the left breast targeted to the area(s) of clinical concern. Computer-aided detection was employed with the [employer] 3-D. TISSUE DENSITY: The breasts are heterogeneously dense, which may obscure small masses. (BI-RADS category C) FINDINGS: MAMMOGRAPHY: LEFT BREAST: There is an unchanged slightly greater than 1 cm round equal density asymmetry with partially circumscribed margins in the slightly outer left breast 5 cm from the nipple. This is obscured in the MLO projection similar to previous. This was likely present 05/12/20 No new suspicious left breast finding ULTRASOUND: LEFT BREAST 1:00 position, 5 cm from left nipple There is a fairly circumscribed hypoechoic oval mass or area of altered echotexture with long axis parallel. No suspicious calcification. No abnormal color signal. 11/19/24-1.6 cm 05/19/24-1.6 cm No new suspicious left breast findings Procedure Note Ascencion Marvin MD - 11/19/2024 EXAM: DIAGNOSTIC MAMMOGRAPHY, UNILATERAL LEFT ULTRASOUND: DIAGNOSTIC ULTRASOUND, UNILATERAL LEFT HISTORY: Short interval follow-up. Probably benign left breast asymmetryon mammography. Probably benign oval left breast mass or alteredechotexture on ultrasound COMPARISON: 05/19/24, 05/05/24, 05/12/20 TECHNIQUE: Synthesized views of the left breast in the CC and MLOprojections. Tomosynthesis of the left breast in the CC and MLOprojections. ADDITIONAL IMAGING: None High-frequency linear transducer ultrasound of the left breast targeted tothe area(s) of clinical concern. Computer-aided detection was employed with the Cytoo 3-D. TISSUE DENSITY: The breasts are heterogeneously dense, which may obscuresmall masses. (BI-RADS category C) FINDINGS: MAMMOGRAPHY: LEFT BREAST: There is an unchanged slightly greater than 1 cm round equal densityasymmetry with partially circumscribed margins in the slightly outer leftbreast 5 cm from the nipple. This is obscured in the MLO projectionsimilar to previous. This was likely present 05/12/20 No new suspicious left breast finding ULTRASOUND: LEFT BREAST 1:00 position, 5 cm from left nipple There is a fairly circumscribed hypoechoic oval mass or area of alteredechotexture with long axis parallel. No suspicious calcification. Noabnormal color signal. 11/19/24-1.6 cm 05/19/24-1.6 cm No new suspicious left breast findings IMPRESSION: Unchanged asymmetry in the left breast on mammography. Unchanged oval hypoechoic mass or area of altered echotexture in the leftbreast on ultrasound. The ultrasound and mammogram findings may represent the same entity. Recommend documenting stability for 24 months. This should includediagnostic mammography in 6 months. The patient will be due for rightbreast screening. Recommend targeted left breast ultrasound in 6 months. ASSESSMENT: BI-RADS 3: PROBABLY BENIGN RECOMMENDATION(S): 1: Follow-up diagnostic mammogram BILATERAL in 6 months. Recommend targeted left breast ultrasound in 6 months [facility] location[facility] [address], [address] -------- FINAL REPORT -------- Dictated By: Ascencion Marvin Dictated Date: 11/19/2024 08:01 ET Assigned Physician: Ascencion Marvin Reviewed and Electronically Signed By: Ascencion Marvin Signed Date: 11/19/2024 08:06 ET Workstation ID: [id number] Transcribed By: Self Edit Transcribed Date: 11/19/2024 08:01 ET us Griffin Mercadante DO IM US PROCEDURES Final Resul t * MG Mammo Digital Diagnostic w Khoi Left (11/19/2024 7:49 AM EDT) Anatomical Region Laterality Modality Breast Left Mammography 11/19/2024 8:01 AM EDT Impressions 11/19/2024 8:06 AM EDT Unchanged asymmetry in the left breast on mammography. Unchanged oval hypoechoic mass or area of altered echotexture in the left breast on ultrasound. The ultrasound and mammogram findings may represent the same entity. Recommend documenting stability for 24 months. This should include diagnostic mammography in 6 months. The patient will be due for right breast screening. Recommend targeted left breast ultrasound in 6 months. ASSESSMENT: BI-RADS 3: PROBABLY BENIGN RECOMMENDATION(S): 1: Follow-up diagnostic mammogram BILATERAL in 6 months. Recommend targeted left breast ultrasound in 6 months [facility] location[facility] [address], [address] -------- FINAL REPORT -------- Dictated By: Ascencion Marvin Dictated Date: 11/19/2024 08:01 ET Assigned Physician: Ascencion Marvin Reviewed and Electronically Signed By: Ascencion Marvin Signed Date: 11/19/2024 08:06 ET Workstation ID: [id number] Transcribed By: Self Edit Transcribed Date: 11/19/2024 08:01 ET Narrative 11/19/2024 8:06 AM EDT EXAM: DIAGNOSTIC MAMMOGRAPHY, UNILATERAL LEFT ULTRASOUND: DIAGNOSTIC ULTRASOUND, UNILATERAL LEFT HISTORY: Short interval follow-up. Probably benign left breast asymmetry on mammography. Probably benign oval left breast mass or altered echotexture on ultrasound COMPARISON: 05/19/24, 05/05/24, 05/12/20 TECHNIQUE: Synthesized views of the left breast in the CC and MLO projections. Tomosynthesis of the left breast in the CC and MLO projections. ADDITIONAL IMAGING: None High-frequency linear transducer ultrasound of the left breast targeted to the area(s) of clinical concern. Computer-aided detection was employed with the [employer] AI 3-D. TISSUE DENSITY: The breasts are heterogeneously dense, which may obscure small masses. (BI-RADS category C) FINDINGS: MAMMOGRAPHY: LEFT BREAST: There is an unchanged slightly greater than 1 cm round equal density asymmetry with partially circumscribed margins in the slightly outer left breast 5 cm from the nipple. This is obscured in the MLO projection similar to previous. This was likely present 05/12/20 No new suspicious left breast finding ULTRASOUND: LEFT BREAST 1:00 position, 5 cm from left nipple There is a fairly circumscribed hypoechoic oval mass or area of altered echotexture with long axis parallel. No suspicious calcification. No abnormal color signal. 11/19/24-1.6 cm 05/19/24-1.6 cm No new suspicious left breast findings Procedure Note Ascencion Marvin MD - 11/19/2024 EXAM: DIAGNOSTIC MAMMOGRAPHY, UNILATERAL LEFT ULTRASOUND: DIAGNOSTIC ULTRASOUND, UNILATERAL LEFT HISTORY: Short interval follow-up. Probably benign left breast asymmetryon mammography. Probably benign oval left breast mass or alteredechotexture on ultrasound COMPARISON: 05/19/24, 05/05/24, 05/12/20 TECHNIQUE: Synthesized views of the left breast in the CC and MLOprojections. Tomosynthesis of the left breast in the CC and MLOprojections. ADDITIONAL IMAGING: None High-frequency linear transducer ultrasound of the left breast targeted tothe area(s) of clinical concern. Computer-aided detection was employed with the [employer] AI 3-D. TISSUE DENSITY: The breasts are heterogeneously dense, which may obscuresmall masses. (BI-RADS category C) FINDINGS: MAMMOGRAPHY: LEFT BREAST: There is an unchanged slightly greater than 1 cm round equal densityasymmetry with partially circumscribed margins in the slightly outer leftbreast 5 cm from the nipple. This is obscured in the MLO projectionsimilar to previous. This was likely present 05/12/20 No new suspicious left breast finding ULTRASOUND: LEFT BREAST 1:00 position, 5 cm from left nipple There is a fairly circumscribed hypoechoic oval mass or area of alteredechotexture with long axis parallel. No suspicious calcification. Noabnormal color signal. 11/19/24-1.6 cm 05/19/24-1.6 cm No new suspicious left breast findings IMPRESSION: Unchanged asymmetry in the left breast on mammography. Unchanged oval hypoechoic mass or area of altered echotexture in the leftbreast on ultrasound. The ultrasound and mammogram findings may represent the same entity. Recommend documenting stability for 24 months. This should includediagnostic mammography in 6 months. The patient will be due for rightbreast screening. Recommend targeted left breast ultrasound in 6 months. ASSESSMENT: BI-RADS 3: PROBABLY BENIGN RECOMMENDATION(S): 1: Follow-up diagnostic mammogram BILATERAL in 6 months. Recommend targeted left breast ultrasound in 6 months [facility] location[facility] [address], [address] -------- FINAL REPORT -------- Dictated By: Ascencion Marvin Dictated Date: 11/19/2024 08:01 ET Assigned Physician: Ascencion Marvin Reviewed and Electronically Signed By: Ascencion Marvin Signed Date: 11/19/2024 08:06 ET Workstation ID: [id number] Transcribed By: Self Edit Transcribed Date: 11/19/2024 08:01 ET us Griffin Horvath DO [facility] [place] PROCEDURES Final Resul t * (ABNORMAL) Lipid panel with reflex to direct LDL (09/23/2024 7:40 AM EDT) Cholesterol 141 0 - 200 mg/dL LAB CHEMISTRY METHOD 09/23/2024 12:30 PM EDT [facility] Triglycerides 169(H) 0 - 150 mg/dL LAB CHEMISTRY METHOD 09/23/2024 12:30 PM EDT [facility] HDL 48 >=40 mg/dL LAB CHEMISTRY METHOD 09/23/2024 12:30 PM EDT [facility] LDL Calculated 59 0 - 100 mg/dL LAB CHEMISTRY METHOD 09/23/2024 12:30 PM EDT [facility] VLDL Cholesterol Panfilo 33.8 mg/dL LAB CHEMISTRY METHOD 09/23/2024 12:30 PM EDT [facility] Non HDL Chol. (LDL+VLDL) 93 <145 mg/dL LAB CHEMISTRY METHOD 09/23/2024 12:30 PM EDT [facility] Chol/HDL Ratio 2.9 0.0 - 4.4 LAB CHEMISTRY METHOD 09/23/2024 12:30 PM EDT [facility] Blood Venous blood specimen / Unknown Venipuncture / Unknown 09/23/2024 7:40 AM EDT 09/23/2024 7:40 AM EDT us Lam Sellers METER TESTER LAB BLOOD ORDERABLES Final Resul t [facility] [address] [place] [address], [place] [phone] * Basic metabolic panel (09/23/2024 7:40 AM EDT) Sodium 142 133 - 145 mmol/L LAB CHEMISTRY METHOD 09/23/2024 12:30 PM T [facility] Potassium 4.3 3.5 - 5.5 mmol/L LAB CHEMISTRY METHOD 09/23/2024 12:30 PM T [facility] Chloride 110 96 - 110 mmol/L LAB CHEMISTRY METHOD 09/23/2024 12:30 PM [facility] CO2 28 21 - 32 mmol/L LAB CHEMISTRY METHOD 09/23/2024 12:30 PM T [facility] Anion Gap 4 3 - 11 LAB CHEMISTRY METHOD 09/23/2024 12:30 PM [facility] Glucose 89 70 - 100 mg/dL LAB CHEMISTRY METHOD 09/23/2024 12:30 PM EDT [facility] BUN 16 5 - 25 mg/dL LAB CHEMISTRY METHOD 09/23/2024 12:30 PM EDT [facility] Creatinine 0.78 0.50 - 1.10 mg/dL LAB CHEMISTRY METHOD 09/23/2024 12:30 PM EDT [facility] eGFR 85 >=60 mL/min/1. 73m2 LAB CHEMISTRY METHOD 09/23/2024 12:30 PM EDT [facility] Comment:Calculation based on the Chronic Kidney Disease Epidemiology Collaboration (CKD-EPI) equation refit without adjustment for race. BUN/Creatinine Ratio 20.5 LAB CHEMISTRY METHOD 09/23/2024 12:30 PM EDT [facility] Calcium 9.5 8.5 - 10.5 mg/dL LAB CHEMISTRY METHOD 09/23/2024 12:30 PM EDT [facility] Blood Venous blood specimen / Unknown Venipuncture / Unknown 09/23/2024 7:40 AM EDT 09/23/2024 7:40 AM EDT us Lam Sellers METER TESTER LAB BLOOD ORDERABLES Final Resul t [facility] [address] [place] [address], from Last 3 Months or Most Recently Relevant to Health Maintenance Insurance MEDICARE [facility] Care Teams Welding Supervisor Relationship Specialty Start Date End Date Griffin Horvath DO [address] [place] [phone] PCP - General Internal Medicine 05/04/24
--- OUTSIDE RECORDS SUMMARY | 2025-02-03 08:41 | XMS_ITS | Patient Health Record ---
Author Organization [facility] Address [address] [place] [address] Care Team Providers Care Polymerization Helper Name Role Phone Yadira Shah Primary Care Provider UnavailKRISTAN Saldana Unavailable KRISTAN CRUZ Unavailable Unavailable Allergies Allergen (clinical drug ingredient) Drug/Non Drug Allergy documented on EMR Reaction Allergy Type Onset Date Status Ceftin rash Drug Allergy Active Reason For Referral No Information Medications Medication SIG (Take, Route, Frequency, Duration) Notes Start Date End Date Status Levothyroxine Sodium 50 MCG Tablet 1 tablet in the morning on an empty stomach Orally Once a day Active oxyBUTYnin Chloride ER 10 MG Tablet Extended Release 24 Hour 1 tablet Orally Once a day; Duration: 30 day(s) Active Diboll 3 1000 MG Capsule 2 capsule Orally Once a day Active Aspirin 81 MG Tablet Delayed Release 1 tablet Orally Once a day Active Praluent 75 MG/ML Solution Auto-injector as directed Subcutaneous twice a month; Duration: 90 days Active Social History Tobacco Use: Social History Observation Description Date Details (start date - stop date) Never Smoker NA - NA Social History Drugs/Alcohol: Social Info Question Answer Notes Alcohol Screen (Audit-C) Did you have a drink containing alcohol in the past year? Yes How often did you have a drink containing alcohol in the past year? 2 to 4 times a month (2 points) How many drinks did you have on a typical day when you were drinking in the past year? 1 or 2 drinks (0 point) How often did you have 6 or more drinks on one occasion in the past year? Never (0 point) Points 2 Interpretation Negative Drugs Have you used drugs other than those for medical reasons in the past 12 months? No Drug Use/Abuse: Never Alcohol use: Do you consume Alcohol? Yes What type? Wine, Liquor Frequency: Rarely Drinks/Week: No Caffeine Intake: 1-2 cups per day Do you consume Caffeine on a daily basis: Yes Cups/Day: 1 What type: Coffee Tobacco Use: Social Info Question Answer Notes Tobacco Use/Smoking Are you a nonsmoker Tobacco use other than smoking: Are you an other tobacco user? No Additional Details Category Social Info Options Details Miscellaneous: Caffeine: 1 cup per day of coffee Diet Regular diet Activity Level Regular exercise Exercise Type Cycling, Walking Advance Directive Healthcare Pro xy Problems Problem Type SNOMED Code ICD Code Onset Dates Problem Status W/U Status Risk Notes Problem Mixed hyperlipidemia (318898223) Mixed hyperlipidemia (E78.2) Active confirmed Problem Atherosclerotic heart disease of [place] coronary artery without angina pectoris (641711860009088) Coronary artery disease involving [place] coronary artery of [place] heart without angina pectoris (I25.10) Active confirmed Problem Hypothyroidism (73944105) Hypothyroidism (acquired) (E03.9) Active confirmed Problem History of non-ST segment elevation myocardial infarction (816813175) History of heart attack (I25.2) Active confirmed Problem Disorder of carotid artery (disorder) (761702285) Carotid artery disease, unspecified laterality, unspecified type (I77.9) Active confirmed Plan Of Treatment No Information Insurance Providers Payer Name Payer Address Payer Phone Subscriber Number Group Number Insured Name Patient Relationship to Insured Coverage Start Date Coverage End Date [employer] [place] [employer] [address] [address] [place] [phone] [id number] Bobbi Gutierres Self - patient is the insured [facility] [address] [place] [address] [phone] [id number] Bobbi Gutierres Self - patient is the insured Medical (General) History Medical History History ICD Code Mixed hyperlipidemia E78.2 History of heart attack I25.2 Hypothyroidism (acquired) E03.9 Coronary artery disease invo lving [place] coronary artery of [place] heart without angina pectoris I25.10 Carotid artery disease, unspecified late rality, unspecified type I77.9 Surgical History Surgery Date(Month/Year) Hospitalization History Reason Date(Month/Year) chest pain 01/19/2201
--- OUTSIDE RECORDS SUMMARY | 2025-02-03 08:41 | XMS_ITS | Encounter Summary ---
Author Organization Formerly [facility] Address [address] [place] [address] [place] [address] Phone Care Team Providers Care Timber Grader Name Role Phone Lino Shahid DO Primary Care Provider +- [phone] Gaby Mckoy NP Primary Care Provider [phone] Griffin Horvath DO Primary Care Provider [phone] Encounter Details Date Type Department Care Team (Latest Contact Info) Description 06/12/2017 Transcribe Orders [facility] [address] [place] [address] Diallo Hackett MD [address] [address] [email or web address] Pure hypercholesterolemia (Primary Dx) Social History Tobacco Use Types Packs/Day Years Used Date Smoking Tobacco: Never Assessed Comments Unknown Sex and Gender Information Value Date Recorded Sex Assigned at Not on file Legal Sex Female 9:48 PM EDT Gender Identity Not on file Sexual Orientation Not on file documented as of this encounter Plan of Treatment Upcoming Encounters Date Type Department Care Team (Late st Contact Info) Description 04/11/2025 7:30 AM EDT Office Visit [facility] [address], [address] [place] [address] Jennifer Barros PA-C [address] [place] [address] [email or web address] documented as of this encounter Results * Basic metabolic panel (06/12/2017 10:14 AM EST) SODIUM 146 133 - 146 mmol/L [facility] CHLORIDE 105 96 - 108 mmol/L [facility] POTASSIUM 4.4 3.3 - 5.1 mmol/L [facility] CO2 26 21 - 35 mmol/L [facility] BUN 13 6 - 19 mg/dL [facility] CREATININE 0.80 0.5 - 1.5 mg/dL [facility] GLUCOSE 91 70 - 99 mg/dL [facility] CALCIUM 9.2 8.4 - 10.3 mg/dL [facility] EGFR >60 60 - 1000 mL/min/1.7 3m2 [facility] Comment:Abnormal if <60. If patient is -Northern Irish, multiply the result by 1.21. ANION GAP 19 10 - 20 mmol/L [facility] Blood 06/12/2017 10:1 4 AM EST 06/12/2017 10:16 AM EST us Diallo Hackett MD LAB BLOOD ORDERABLES Final Resu lt Performing Organization Address City/State/[facility] Co de Phone Number [address] [address] * LFTs (hepatic panel) (06/12/2017 10:14 AM EST) ALKALINE PHOSPHATASE 64 39 - 117 U/L [facility] TOTAL BILIRUBIN 0.7 0 - 1.2 mg/dL [facility] DIRECT BILIRUBIN <0.2 0 - 0.3 mg/dL [facility] Bilirubin (Indirect) NOT CALCULATED 0 - 1.5 mg/dL [facility] AST 27 0 - 37 U/L [facility] ALT 30 0 - 40 U/L [facility] TOTAL PROTEIN 7.3 6.5 - 8.0 g/dL [facility] ALBUMIN 4.8 3.9 - 4.8 g/dL [facility] GLOBULIN 2.5 1 - 4.8 g/dL [facility] A/G Ratio 1.92 1.00 - 4.80 RATIO [facility] Blood 06/12/2017 10:1 4 AM EST 06/12/2017 10:16 AM EST us Diallo Hackett MD LAB BLOOD ORDERABLES Final Resu lt Performing Organization Address [facility]/ZIP Co de Phone Number [address] [address] * (ABNORMAL) Lipid panel (06/12/2017 10:14 AM EST) HDL 55 mg/dL [facility] Comment: Interpretation: Risk Level Females Decreased >55mg/dL Average 50-55 mg/dL Increased <50 mg/dL CHOLESTEROL 155 0 - 240 mg/dL [facility] TRIGLYCERIDES 190(H) 30 - 160 mg/dL [facility] LDL 62 50 - 129 mg/dL [facility] Comment: LDL levels in terms of risk for coronary heart disease: <100 mg/dL: Optimal 100-129 mg/dL: Near or above optimal 130-159 mg/dL: Borderline high 160-189 mg/dL: High >190 mg/dL: Very High CARDIAC RISK RATIO 2.8(L) 3.3 - 4.4 [facility] Blood 06/12/2017 10:1 4 AM EST 06/12/2017 10:16 AM EST us Diallo Hackett MD LAB BLOOD ORDERABLES Final Resu lt Performing Organization Address [facility] Co de Phone Number [address] [address] documented in this encounter Visit Diagnoses Diagnosis Pure hypercholesterolemia- Primary documented in this encounter Care Teams Timber Grader Relationship Specialty Start Date End Date Lino Shahid DO [address] [place] [address] PCP - General 04/17/17 12/28/18 Gaby Mckoy DIET TECHNICIAN REGISTERED [address] [place] [address] [place] [address] [email or web address] PCP - General Family Medicine 12/29/18 07/28/23 Griffin Horvath DO [address] [place] [address] 18 [place] [address] PCP - General Internal Medicine 07/29/23 documented as of this encounter Additional Source Comments The information contained in this document represents components of the legal health record. It is not the complete legal health record.Formerly [facility]
--- OUTSIDE RECORDS SUMMARY | 2025-02-03 08:41 | XMS_ITS | Clinical Summary ---
Author Organization [facility] Address [address] [place] [address] Care Team Providers Care Certified Juvenile Probation Officer Name Role Phone Unavailable Primary Care Provider Unavailabl e Social History Tobacco Use Types Packs/Day Years Used Date Smoking Tobacco: Never Assessed Comments Unknown Sex and Gender Information Value Date Recorded Sex Assigned at Not on file Legal Sex Female 7:09 PM EST Gender Identity Not on file Sexual Orientation Not on file Plan of Treatment Health Maintenance Due Date Last Done Comments Hepatitis C Virus Screening 1960 HIV Screening 1973 DTaP/Tdap/Td Vaccines (1 - Tdap) 1979 Pneumococcal Vaccines 50+ (1 of 1 - PCV) 2010 Zoster (Shingles) Vaccine (1 of 2) 2010 COVID-19 Vaccine ( - 2023-2 5 season) 2024 RSV Vaccine 60 years and old er and Patients (1 - 1-dose 75+ series) 2035 Hepatitis B Vaccines Aged Out No long er eligible based on patient's age to complete this topic
== END 2025-02-03 09:09 | disposition home or self-care (01) ==
LOC: HO.HUSH 08:28
PROVIDERS: Visit Provider Urology
DX: N39.0 Urinary tract infection, site not specified (principal); N30.10 Interstitial cystitis (chronic) without hematuria; R39.15 Urgency of urination
CPT/HCPCS: 99214; G2211

== ENCOUNTER 2025-02-03 08:28 | Outpatient (REF) | payer MEDICARE, SELFPAY ==
--- OUTSIDE RECORDS SUMMARY | 2025-02-03 16:52 | XMS_ITS | Clinical Summary ---
Author Organization [facility] Address [address] [place] [address] Care Team Providers Care Buckle And Button Maker Name Role Phone Unavailable Primary Care Provider [...]
--- OUTSIDE RECORDS SUMMARY | 2025-02-03 16:52 | XMS_ITS | Clinical Summary ---
Author Organization [facility] Address [address] [place] [address] Phone Care Team Providers Care Log Yard Derrick Operator Name Role Phone DellmilaGriffin woodruff DO Primary Care Provider [phone] Encounters Date Type Department Care Team Description 11/19/2024 7:31 AM EDT - 11/19/2024 11:59 PM EDT Hospital Encounter [facility] Ultrasound [address] [place] [id number] Breast asymmetry Discharge Disposition: Home or Self Care 11/19/2024 6:53 AM EDT - 11/19/2024 11:59 PM EDT Hospital Encounter [facility] [address] [place] [phone] Breast asymmetry Discharge Disposition: Home or Self Care from Last 3 Months Surgical History Surgery Date Site/Laterality Comments APPENDECTOMY PROCEDURE:APPENDECTOMY CARDIAC CATHETERIZATION PROCEDURE:CARDIAC CATHETERIZATION HYSTERECTOMY 06/30/1992 - 06/29/1993 PROCEDURE:HYSTERECTOMY VEIN SURGERY PROCEDURE:VEIN SURGERY CORONARY ANGIOPLASTY PROCEDURE:CORONARY ANGIOPLASTY BREAST CYST ASPIRATION STEREOTACTIC CORE BIOPSY 06/30/2003 - 06/29/2004 [facility] Medical History Medical History Date Comments Coronary [...] AM EST Appointment [facility] [address] [address] Health Maintenance Due Date Last [...] months Mammography location: [facility] [address], [address] -------- FINAL REPORT -------- Dictated By: Ascencion Marvin Dictated Date: 11/19/2024 08:01 ET Assigned Physician: Ascencion Marvin Reviewed and Electronically Signed By: Ascencion Marvin Signed Date: 11/19/2024 08:06 ET Workstation ID: [id number] Transcribed By: Self Edit Transcribed Date: 11/19/2024 [...] concern. Computer-aided detection was employed with the [employer] 3-D. TISSUE DENSITY: The breasts are heterogeneously [...] concern. Computer-aided detection was employed with the [employer] 3-D. TISSUE DENSITY: The breasts are heterogeneously [...] months Mammography location: [facility] [address], [address] -------- FINAL REPORT -------- Dictated By: Ascencion Marvin Dictated Date: 11/19/2024 08:01 ET Assigned Physician: Ascencion Marvin Reviewed and Electronically Signed By: Ascencion Marvin Signed Date: 11/19/2024 08:06 ET Workstation ID: [id number] Transcribed By: Self Edit Transcribed Date: 11/19/2024 [...] months Mammography location: [facility] [address], [address] -------- FINAL REPORT -------- Dictated By: Ascencion Marvin Dictated Date: 11/19/2024 08:01 ET Assigned Physician: Ascencion Marvin Reviewed and Electronically Signed By: Ascencion Marvin Signed Date: 11/19/2024 08:06 ET Workstation ID: [id number] Transcribed By: Self Edit Transcribed Date: 11/19/2024 [...] concern. Computer-aided detection was employed with the [employer] 3-D. TISSUE DENSITY: The breasts are [...] concern. Computer-aided detection was employed with the [employer] AI 3-D. TISSUE DENSITY: The breasts are [...] months Mammography location: [facility] [address], [address] -------- FINAL REPORT -------- Dictated By: Ascencion Marvin Dictated Date: 11/19/2024 08:01 ET Assigned Physician: Ascencion Marvin Reviewed and Electronically Signed By: Ascencion Marvin Signed Date: 11/19/2024 08:06 ET Workstation ID: [id number] Transcribed By: Self Edit Transcribed Date: 11/19/2024 08:01 ET us Griffin Horvath DO [facility] BI PROCEDURES Final Resul t * (ABNORMAL) Lipid panel with reflex to direct LDL (09/23/2024 7:40 AM EDT) Cholesterol 141 0 - 200 mg/dL LAB CHEMISTRY METHOD 09/23/2024 12:30 PM EDT [facility] Triglycerides 169(H) 0 - 150 mg/dL LAB CHEMISTRY METHOD 09/23/2024 12:30 PM EDT [facility] HDL 48 >=40 mg/dL LAB CHEMISTRY METHOD 09/23/2024 12:30 PM EDT [facility] LDL Calculated 59 0 - 100 mg/dL LAB CHEMISTRY METHOD 09/23/2024 12:30 PM EDT [facility] VLDL Cholesterol Panfilo 33.8 mg/dL LAB CHEMISTRY METHOD 09/23/2024 12:30 PM EDT [facility] Non HDL Chol. (LDL+VLDL) 93 <145 mg/dL LAB CHEMISTRY METHOD 09/23/2024 12:30 PM EDT [facility] Chol/HDL Ratio 2.9 0.0 - 4.4 LAB CHEMISTRY METHOD 09/23/2024 12:30 PM EDT [facility] Blood Venous blood specimen / Unknown Venipuncture / Unknown 09/23/2024 7:40 AM EDT 09/23/2024 7:40 AM EDT us Lam Sellers ENTRY LEVEL SALES CONSULTANT LAB BLOOD ORDERABLES Final Resul t [facility] [address] [place] [address], [place] [phone] * Basic metabolic panel (09/23/2024 7:40 AM EDT) Sodium 142 133 - 145 mmol/L LAB CHEMISTRY METHOD 09/23/2024 12:30 PM T [facility] Potassium 4.3 3.5 - 5.5 mmol/L LAB CHEMISTRY METHOD 09/23/2024 12:30 PM T [facility] Chloride 110 96 - 110 mmol/L LAB CHEMISTRY METHOD 09/23/2024 12:30 PM [facility] CO2 28 21 - 32 mmol/L LAB CHEMISTRY METHOD 09/23/2024 12:30 PM T [facility] Anion Gap 4 3 - 11 LAB CHEMISTRY METHOD 09/23/2024 12:30 PM [facility] Glucose 89 70 - 100 mg/dL LAB CHEMISTRY METHOD 09/23/2024 12:30 PM EDT [facility] BUN 16 5 - 25 mg/dL LAB CHEMISTRY METHOD 09/23/2024 12:30 PM EDT [facility] Creatinine 0.78 0.50 - 1.10 mg/dL LAB CHEMISTRY METHOD 09/23/2024 12:30 PM EDT [facility] eGFR 85 >=60 mL/min/1. 73m2 LAB CHEMISTRY METHOD 09/23/2024 12:30 PM EDT [facility] Comment:Calculation based on the Chronic Kidney Disease Epidemiology Collaboration (CKD-EPI) equation refit without adjustment for race. BUN/Creatinine Ratio 20.5 LAB CHEMISTRY METHOD 09/23/2024 12:30 PM EDT [facility] Calcium 9.5 8.5 - 10.5 mg/dL LAB CHEMISTRY METHOD 09/23/2024 12:30 PM EDT [facility] Blood Venous blood specimen / Unknown Venipuncture / Unknown 09/23/2024 7:40 AM EDT 09/23/2024 7:40 AM EDT us Lam Sellers ENTRY LEVEL SALES CONSULTANT LAB BLOOD ORDERABLES Final Resul t [facility] [address] [place] [address], from Last 3 Months or Most Recently Relevant to Health Maintenance Insurance MEDICARE [facility] Care Teams Log Yard Derrick Operator Relationship Specialty Start Date End Date Griffin Horvath DO [address] [place] [phone] PCP - General Internal Medicine 05/04/24
--- OUTSIDE RECORDS SUMMARY | 2025-02-03 16:52 | XMS_ITS | Clinical Summary ---
Author Organization [facility] Address [address] [place] [address] Care Team Providers Care Golf Course Starter Name Role Phone Gaby Mckoy Greyson CARRERA Primary Care Provider [phone] Allergies Active Allergy Reactions Criticality Noted Date [...] hypothyroidism 01/27/2023 Coronary artery disease invo lving [place] coronary artery of [place] heart without angina pectoris 06/18/2017 Overview: Overview: [...] age to complete this topic Care Teams Golf Course Starter Relationship Specialty Start Date End Date Gaby Mckoy APRN [address] [place] [address] PCP - General Family Medicine 04/23/18
--- OUTSIDE RECORDS SUMMARY | 2025-02-03 16:52 | XMS_ITS | Encounter Summary ---
Author Organization [facility] Address [address] [place] [address] [place] [address] Phone Care Team Providers Care Site Safety Coordinator Name Role Phone Lino Shahid DO Primary Care Provider [phone]- [phone] Gaby Mckoy NP Primary Care Provider [phone] Griffin Horvath DO Primary Care Provider [phone] Encounter Details Date Type Department Care Team (Latest Contact Info) Description 06/12/2017 Transcribe Orders [facility] [address] [place] [address] Diallo Hackett MD [address] [address] [email or web address] Pure hypercholesterolemia (Primary Dx) Social History Tobacco [...] Description 04/11/2025 7:30 AM EDT Office Visit [facility] [address], [address] [place] [address] Jennifer Barros PA-C [address] [place] [address] [email or web address] documented as of this encounter Results * Basic metabolic panel (06/12/2017 10:14 AM EST) SODIUM 146 133 - 146 mmol/L [facility] CHLORIDE 105 96 - 108 mmol/L [facility] POTASSIUM 4.4 3.3 - 5.1 mmol/L [facility] CO2 26 21 - 35 mmol/L [facility] BUN 13 6 - 19 mg/dL [facility] CREATININE 0.80 0.5 - 1.5 mg/dL [facility] GLUCOSE 91 70 - 99 mg/dL [facility] CALCIUM 9.2 8.4 - 10.3 mg/dL [facility] EGFR >60 60 - 1000 mL/min/1.7 3m2 [facility] Comment:Abnormal if <60. If patient is -Lithuanian, multiply the result by 1.21. ANION GAP 19 10 - 20 mmol/L [facility] Blood 06/12/2017 10:1 4 AM EST 06/12/2017 10:16 AM EST us Diallo Hackett MD LAB BLOOD ORDERABLES Final Resu lt Performing Organization Address City/State/[facility] Co de Phone Number [address] [address] * LFTs (hepatic panel) (06/12/2017 10:14 AM EST) ALKALINE PHOSPHATASE 64 39 - 117 U/L [facility] TOTAL BILIRUBIN 0.7 0 - 1.2 mg/dL [facility] DIRECT BILIRUBIN <0.2 0 - 0.3 mg/dL [facility] Bilirubin (Indirect) NOT CALCULATED 0 - 1.5 mg/dL [facility] AST 27 0 - 37 U/L [facility] ALT 30 0 - 40 U/L [facility] TOTAL PROTEIN 7.3 6.5 - 8.0 g/dL [facility] ALBUMIN 4.8 3.9 - 4.8 g/dL [facility] GLOBULIN 2.5 1 - 4.8 g/dL [facility] A/G Ratio 1.92 1.00 - 4.80 RATIO [facility] Blood 06/12/2017 10:1 4 AM EST 06/12/2017 10:16 AM EST us Diallo Hackett MD LAB BLOOD ORDERABLES Final Resu lt Performing Organization Address [facility]/ZIP Co de Phone Number [address] [address] * (ABNORMAL) Lipid panel (06/12/2017 10:14 AM EST) HDL 55 mg/dL [facility] Comment: Interpretation: Risk Level Females Decreased >55mg/dL Average 50-55 mg/dL Increased <50 mg/dL CHOLESTEROL 155 0 - 240 mg/dL [facility] TRIGLYCERIDES 190(H) 30 - 160 mg/dL [facility] LDL 62 50 - 129 mg/dL [facility] Comment: LDL levels in terms of risk for coronary heart disease: <100 mg/dL: Optimal 100-129 mg/dL: Near or above optimal 130-159 mg/dL: Borderline high 160-189 mg/dL: High >190 mg/dL: Very High CARDIAC RISK RATIO 2.8(L) 3.3 - 4.4 [facility] Blood 06/12/2017 10:1 4 AM EST 06/12/2017 10:16 AM EST us Diallo Hackett MD LAB BLOOD ORDERABLES Final Resu lt Performing Organization Address [facility] Co de Phone Number [address] [address] documented in this encounter Visit Diagnoses Diagnosis Pure hypercholesterolemia- Primary documented in this encounter Care Teams Site Safety Coordinator Relationship Specialty Start Date End Date Lino Shahid DO [address] [place] [address] PCP - General 04/17/17 12/28/18 Gaby Mckoy GLASS INSERTER [address] [place] [address] [place] [email or web address] PCP - General Family Medicine 12/29/18 07/28/23 Griffin Horvath DO [address] [place] [address] [address] [place] [address] PCP - General Internal Medicine 07/29/23 documented as of this encounter Additional Source Comments The information contained in this document represents components of the legal health record. It is not the complete legal health record.[facility]
== END 2025-02-03 08:29 | disposition home or self-care (01) ==
LOC: HO.LAB 08:28
PROVIDERS: Visit Provider Urology
DX: N30.10 Interstitial cystitis (chronic) without hematuria (principal); R39.15 Urgency of urination
CPT/HCPCS: 51798; 81003; 87086; 87088; 87186; 99212